=== PATIENT | male | born 1970 | race Caucasian/White ===

== ENCOUNTER 2016-08-10 20:25 | Emergency (ER) | payer OTHER ==
[2016-08-10 22:12] VITALS: BP 138/91
== END 2016-08-10 22:12 | disposition home or self-care (01) ==
LOC: ED 20:25
DX: L60.0 Ingrowing nail (principal); R03.0 Elevated blood-pressure reading, without diagnosis of hypertension

== ENCOUNTER 2016-12-06 16:04 | Emergency (ER) | payer OTHER ==
[~2016-12-06] VITALS: Ht 172.7 cm; Wt 106.2 kg
[2016-12-06 17:21] VITALS: BP 158/110
== END 2016-12-06 17:21 | disposition home or self-care (01) ==
LOC: ED 16:04
DX: S16.1XXA Strain of muscle, fascia and tendon at neck level, initial encounter (principal); R51 Headache; E66.9 Obesity, unspecified; Y04.2XXA Assault by strike against or bumped into by another person, initial encounter; Y93.89 Activity, other specified; Y99.8 Other external cause status; Y92.89 Other specified places as the place of occurrence of the external cause